=== PATIENT | male | born 1995 | race Two or more races ===

== ENCOUNTER → 2024-07-19 | Emergency (ER) | payer BC ==
[~2024-07-19] VITALS: Ht 175.3 cm; Wt 95.3 kg
[~2024-07-19] MED LIST: BUPROPION XL150 MG PO; EMTRICITABINE-1 EACH PO
== END | disposition left against medical advice (07) ==
LOC: ER 09:52
DX: S80.01XA Contusion of right knee, initial encounter (principal); X58.XXXA Exposure to other specified factors, initial encounter; Y93.89 Activity, other specified; Y92.832 Beach as the place of occurrence of the external cause